=== PATIENT | female | born 1995 | race Caucasian/White ===

== ENCOUNTER 2020-06-16 06:32 | Outpatient (RCR) | payer OTHER, SELFPAY ==
[2020-06-16 06:51] LABS: COVID-19 Test Negative (Negative)
[2020-06-23 14:26] LABS: COVID-19 Test Negative (Negative)
[2020-06-30 06:56] LABS: COVID-19 Test Negative (Negative); IDNOW Serial# 55D5AD1C
[2020-07-22 08:54] LABS: SARS-COV-2 PCR UMBRL Not Detected
[2020-07-26 14:02] LABS: SARS-COV-2 PCR UMBRL NOT DETECTED
[2020-08-04 09:43] LABS: SARS-COV-2 PCR UMBRL Not Detected
[2020-08-11 12:39] LABS: SARS-COV-2 PCR UMBRL Not Detected
[2020-08-14 11:12] LABS: SARS-COV-2 PCR UMBRL Not Detected
[2020-08-24 09:53] LABS: SARS-COV-2 PCR UMBRL NEGATIVE
== END 2020-06-16 06:33 | disposition home or self-care (01) ==
LOC: HO.EMPCOV 06:32
PROVIDERS: Visit Provider Internal Medicine
DX: Z20.828 Contact with and (suspected) exposure to other viral communicable diseases (principal)
CPT/HCPCS: 36415; 87635; C9803; U0003

== ENCOUNTER 2020-08-17 08:48 | Outpatient (REF) | payer OTHER, SELFPAY ==
[2020-08-17 09:18] LABS: COVID-19 Test Negative (Negative)
== END 2020-08-17 08:49 | disposition home or self-care (01) ==
LOC: HO.EMPCOV 08:48
PROVIDERS: Visit Provider Internal Medicine
DX: Z20.828 Contact with and (suspected) exposure to other viral communicable diseases (principal)
CPT/HCPCS: 36415; 87635

== ENCOUNTER 2020-09-25 09:50 | Outpatient (REF) | payer OTHER, SELFPAY ==
[2020-09-26 08:31] LABS: HBsAGNum1 0.18 S/CO (0.00-0.99); HIV AB/AG Nonreactive (Nonreactive); HIV Num 1 0.08 S/CO (0.00-0.99); Hepatitis B Surface Antigen Negative (Negative); ~HepC Num1 0.07 S/CO (0.00-0.79); ~Hepatitis C Antibody Nonreactive (Nonreactive)
[2020-09-26 09:44] LABS: Syphilis Screen Nonreactive (Nonreactive)
[2020-09-26 14:56] LABS: C. trachomatis RNA TMA NOT DETECTED (NOT DETECTED); N. gonorrhoeae RNA TMA NOT DETECTED (NOT DETECTED)
== END 2020-09-25 09:51 | disposition home or self-care (01) ==
LOC: HO.LAB 09:50
PROVIDERS: PCP Internal Medicine; Visit Provider Advanced Practice Midwife
DX: Z11.59 Encounter for screening for other viral diseases (principal); Z11.4 Encounter for screening for human immunodeficiency virus [HIV]; Z11.3 Encounter for screening for infections with a predominantly sexual mode of transmission; Z11.8 Encounter for screening for other infectious and parasitic diseases; G43.909 Migraine, unspecified, not intractable, without status migrainosus
CPT/HCPCS: 36415; 86780; 86803; 87340; 87389; 87491; 87591

== ENCOUNTER 2021-05-06 14:03 | Outpatient (REF) | payer OTHER, SELFPAY ==
[2021-05-07 01:34] LABS: CT PCR NOT DETECTED (Not Detect.); NG PCR NOT DETECTED (Not Detect.)
[2021-05-07 09:06] LABS: BV Int Neg Control Negative (Negative); BV Int Pos Control Positive (Positive)
== END 2021-05-06 14:04 | disposition home or self-care (01) ==
LOC: HO.LAB 14:03
PROVIDERS: Visit Provider Advanced Practice Midwife
DX: Z01.411 Encounter for gynecological examination (general) (routine) with abnormal findings (principal); N92.1 Excessive and frequent menstruation with irregular cycle; Z20.2 Contact with and (suspected) exposure to infections with a predominantly sexual mode of transmission
CPT/HCPCS: 87480; 87491; 87510; 87591; 87660

== ENCOUNTER 2022-04-06 15:18 | Outpatient (REF) | payer OTHER, SELFPAY ==
--- NOTE | ~2022-04-06 | XR_ITS ---
EXAMINATION: XR CHEST CLINICAL INFORMATION: Cough. COMPARISON: Chest radiograph dated from 08/15/2019. TECHNIQUE: 2 views of the chest were obtained. FINDINGS: No significant abnormality is noted involving the heart, lungs, mediastinum, bony thorax or soft tissues. XR/XR chest 2V IMPRESSION: Unremarkable examination.
== END 2022-04-06 15:19 | disposition home or self-care (01) ==
LOC: HO.XRAY 15:18
PROVIDERS: Visit Provider Internal Medicine Pulmonary Disease
DX: R05.9 Cough, unspecified (principal)
CPT/HCPCS: 71046

== ENCOUNTER 2022-04-09 21:33 | Outpatient (REF) | payer OTHER, SELFPAY ==
[2022-04-09 22:18] LABS: COVID-19 Test Negative (Negative); IDNOW Serial# 55D5AD1C
[2022-04-13 09:11] LABS: Binax Internal Control QC Valid; Binax Now Covid-19 Ag Negative (Negative)
== END 2022-04-09 21:34 | disposition home or self-care (01) ==
LOC: HO.LAB 21:33
PROVIDERS: Internal Medicine; PCP Internal Medicine; Visit Provider Internal Medicine
DX: Z20.822 Contact with and (suspected) exposure to COVID-19 (principal)
CPT/HCPCS: 87635; 87811; C9803

== ENCOUNTER 2022-05-26 09:25 | Outpatient (REF) | payer OTHER, SELFPAY ==
[2022-05-26 11:34] LABS: MANUAL DIFF FLAG NO
[2022-05-26 11:56] LABS: Basophils Percent Auto 0.7 % (0-2); Eosinophils Absolute Auto 0.2 X10*3/uL (0.0-0.4); Eosinophils Percent Auto 3.8 % (0-4); Hematocrit 44.3 % (37.0-47.0); Hemoglobin 14.8 g/dl (12.0-16.0); Imm Gran Abs Auto 0.01 X10*3/uL (0.00-0.03); Imm Gran Pct Auto 0.2 % (0.0-0.4); Lymphocytes Percent Auto 33.9 % (20-40); Mean Corpuscular HGB Conc 33.4 g/dl (31.0-35.0); Mean Corpuscular Hemoglobin 30.3 pg (27.0-33.0); Mean Corpuscular Volume 90.8 fL (80.0-98.0); Mean Platelet Volume 11.3 fL (9.4-12.3); Monocytes Absolute Auto 0.5 X10*3/uL (0.1-1.2); Monocytes Percent Auto 8.2 % (2-11); Neutrophils Absolute Auto 3.1 x10*3/uL (2.0-8.3); Neutrophils Percent Auto 53.2 % (45-73); Platelet Count 218 X10*3/uL (160-400); Red Blood Count 4.88 X10*6/uL (4.20-5.50); Red Cell Distribution Width 12.6 % (11.0-16.0); White Blood Count 5.8 X10*3/uL (4.8-10.8)
[2022-05-26 12:48] LABS: Alanine Aminotransferase 20 U/L (0-31); Albumin Level 4.7 g/dL (3.5-5.0); Alkaline Phosphatase 64 U/L (39-117); Anion Gap 15 (12-20); Aspartate Amino Transferase 24 U/L (5-31); Bilirubin Total 0.9 mg/dL (0.0-1.0); Blood Urea Nitrogen 15 mg/dL (9-16); Carbon Dioxide 27 mmol/L (22-29); Chloride 103 mmol/L (96-108); Cholesterol 195 mg/dL; Estimated Glomerular Filt Rate > 60; Glucose Fasting 82 mg/dL (60-99); HDL Cholesterol 86 mg/dL; LDL Cholesterol Calculated 101 mg/dl; Sodium 141 mmol/L (135-145); Total Protein 7.4 g/dL (6.5-8.0); Triglycerides 41 mg/dL
== END 2022-05-26 09:26 | disposition home or self-care (01) ==
LOC: HO.WFDLDS 09:25
PROVIDERS: Visit Provider Nurse Practitioner Family
DX: Z00.00 Encounter for general adult medical examination without abnormal findings (principal)
CPT/HCPCS: 36415; 80053; 80061; 85025

== ENCOUNTER → 2022-07-13 09:22 | Outpatient (BNVA) | payer SELFPAY | PROVIDERS: PCP Nurse Practitioner Family | DX: R76.11 Nonspecific reaction to tuberculin skin test without active tuberculosis (principal) | CPT/HCPCS: 36415; 86481 ==

== ENCOUNTER 2022-09-28 12:53 | Outpatient (REF) | payer OTHER, SELFPAY ==
[2022-09-28 13:04] LABS: MANUAL DIFF FLAG NO
[2022-09-28 13:19] LABS: Basophils Absolute Auto 0.1 X10*3/uL (0.0-0.2); Basophils Percent Auto 0.5 % (0-2); Eosinophils Absolute Auto 0.6 X10*3/uL (0.0-0.4); Eosinophils Percent Auto 5.9 % (0-4); Hematocrit 43.7 % (37.0-47.0); Hemoglobin 14.6 g/dl (12.0-16.0); Imm Gran Abs Auto 0.04 X10*3/uL (0.00-0.03); Imm Gran Pct Auto 0.4 % (0.0-0.4); Lymphocytes Absolute Auto 2.2 X10*3/uL (1.2-4.9); Lymphocytes Percent Auto 20.7 % (20-40); Mean Corpuscular HGB Conc 33.4 g/dl (31.0-35.0); Mean Corpuscular Hemoglobin 30.2 pg (27.0-33.0); Mean Corpuscular Volume 90.5 fL (80.0-98.0); Mean Platelet Volume 10.9 fL (9.4-12.3); Monocytes Absolute Auto 0.8 X10*3/uL (0.1-1.2); Monocytes Percent Auto 7.2 % (2-11); Neutrophils Percent Auto 65.3 % (45-73); Platelet Count 208 X10*3/uL (160-400); Red Blood Count 4.83 X10*6/uL (4.20-5.50); Red Cell Distribution Width 12.6 % (11.0-16.0); White Blood Count 10.7 X10*3/uL (4.8-10.8)
== END 2022-09-28 12:54 | disposition home or self-care (01) ==
LOC: HO.LAB 12:53
PROVIDERS: PCP Nurse Practitioner Family; Visit Provider Internal Medicine Pulmonary Disease
DX: R05.9 Cough, unspecified (principal); Z91.09 Other allergy status, other than to drugs and biological substances
CPT/HCPCS: 36415; 82785; 85025; 86003

== ENCOUNTER → 2022-10-12 12:23 | Outpatient (BNVA) | payer OTHER, SELFPAY | PROVIDERS: PCP Nurse Practitioner Family; Visit Provider Internal Medicine Pulmonary Disease | DX: Z13.89 Encounter for screening for other disorder (principal) ==

== ENCOUNTER → 2022-11-09 09:57 | Outpatient (BNVA) | payer OTHER, SELFPAY | PROVIDERS: PCP Nurse Practitioner Family; Visit Provider Internal Medicine Pulmonary Disease | DX: Z13.89 Encounter for screening for other disorder (principal) ==

== ENCOUNTER 2022-11-29 12:29 | Outpatient (REF) | payer OTHER, SELFPAY | END 2022-11-29 12:30 | disposition home or self-care (01) | LOC: HO.MDS 12:29 | PROVIDERS: Visit Provider Internal Medicine Pulmonary Disease | DX: J45.50 Severe persistent asthma, uncomplicated (principal) | CPT/HCPCS: 96372; J2357 ==

== ENCOUNTER 2022-12-13 07:30 | Outpatient (REF) | payer OTHER, SELFPAY | END 2022-12-13 07:31 | disposition home or self-care (01) | LOC: HO.MDS 07:30 | PROVIDERS: Visit Provider Internal Medicine Pulmonary Disease | DX: J45.50 Severe persistent asthma, uncomplicated (principal) | CPT/HCPCS: 96372 ==

== ENCOUNTER 2022-12-27 08:36 | Outpatient (REF) | payer OTHER, SELFPAY | END 2022-12-27 08:37 | disposition home or self-care (01) | LOC: HO.MDS 08:36 | PROVIDERS: Visit Provider Internal Medicine Pulmonary Disease | DX: J45.50 Severe persistent asthma, uncomplicated (principal) | CPT/HCPCS: 96372 ==

== ENCOUNTER 2023-09-09 13:19 | Outpatient (AMB) | payer BC, SELFPAY ==
[2023-09-09 13:20] VITALS: BP 112/62; PULSE 93; O2SAT 100; BMI 24.4
--- NOTE | 2023-09-09 13:20 | MHC.OFFVIS ---
Intake Vital Signs 09/09/23 13:20 Height 5 ft 9 in Weight 165 lb 5.547 oz BMI 24.4 BP 112/62 Blood Pressure Location Rt brachial Position Sitting Pulse 93 Pulse Source Doppler Pulse Oximetry (%) 100 Oxygen Delivery Method Room Air Intake Visit Reasons: asthma wants to restart Xolair Allergies No Known Allergies Allergy (Verified 09/09/23 13:22) HPI asthma wants to restart Xolair HPI Details 27-year-old nonsmoker followed for asthma and environmental allergies. Patient has been using Breo and albuterol MDI with suboptimal control of his symptoms. She has been started on Xolair with significant improvement and essentially resolution of her asthma and environmental allergy symptoms. Unfortunately her insurance has changed and she has not had Xolair for last 3-4 months with significant deterioration her symptoms of Xolair. She does continue to use Breo and albuterol MDI. She denies acute exacerbations. 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[place] Sexual orientation: Straight/Heterosexual Gender identity: Female Female Reproductive History Menstrual Age of Menarche: 12 Review of Systems Const Denies daytime sleepiness, Denies excessive sweating, Denies fatigue, Denies fever(s), Denies lethargy, Denies malaise, Denies night sweats, Denies snoring and Denies weight loss Eyes Denies blurry vision and Denies itchy eyes ENT Denies nasal congestion, Denies post nasal drip, Denies sinus pain, Denies sinus pressure and Denies other ( Thrush) Card Denies chest pain, Denies pedal edema, Denies dyspnea, Denies orthopnea and Denies paroxysmal nocturnal dyspnea Resp Denies cough, Denies hemoptysis, Denies excessive phlegm production, Denies dyspnea, Denies snoring and Reports wheezing GI Denies abdominal pain and Denies heartburn Musc Denies myalgias, Denies arthralgias and Denies joint swelling Skin/Breast Denies rash Neuro Denies memory loss and Denies seizure-like activity Psych Denies abnormal sleep pattern, Denies anxiety and Denies memory loss Endo Denies excessive sweating, Denies fatigue and Denies heat intolerance Krunal/Lymph Denies easy bruising Aller/Immun Denies itchy eyes, Denies seasonal rhinorrhea and Reports wheezing Physical Exam Vital Signs: Last Vital Signs Pulse 93 09/09/23 13:20 BP 112/62 09/09/23 13:20 Pulse Ox 100 09/09/23 13:20 Oxygen Delivery Method Room Air 09/09/23 13:20 BMI result Body Mass Index 24.4 Const General: no acute distress and alert Nutritional Appearance: not obese Orientation/consciousness: Other orientation findings ( oriented) HEENT Head: Yes atraumatic Eyes General: appearance normal, both eyes and all related structures Sclerae: sclerae normal EOM: EOMs intact bilaterally Neck Neck: Yes supple Lymphatic: no lymphadenopathy noted Resp Effort & Inspection: normal respiratory effort and no use of accessory muscles Auscultation: clear to auscultation bilaterally Cardio Rate: regular rate Rhythm: regular rhythm Heart sounds: no gallops, no murmurs and no rubs Skin General skin exam: other ( warm) Extrem General: No clubbing, No cyanosis and No edema Assessment & Plan Assessment & Plan (1) Asthma: Code(s): J45.909 - Unspecified asthma, uncomplicated Plan: Previously excellent control on Xolair, recently off Xolair secondary to insurance reasons with suboptimal control of his symptoms. Continue Breo and albuterol MDI. Will request Xolair re-approval (2) Environmental allergies: Code(s): Z91.09 - Other allergy status, other than to drugs and biological substances Plan: Expect to improve on Xolair. Coding Level of Care Code Est Pt Level 4 (37840) Diagnoses Asthma J45.909 Environmental allergies Z91.09
== END 2023-09-09 13:35 | disposition home or self-care (01) ==
PROVIDERS: PCP Nurse Practitioner Family; Visit Provider Internal Medicine Pulmonary Disease
DX: J45.909 Unspecified asthma, uncomplicated (principal); Z91.09 Other allergy status, other than to drugs and biological substances
CPT/HCPCS: 99214

== ENCOUNTER → 2023-09-09 13:19 | Outpatient (BNVA) | payer BC, SELFPAY | PROVIDERS: PCP Nurse Practitioner Family; Visit Provider Internal Medicine Pulmonary Disease ==

== ENCOUNTER 2024-02-27 10:48 | Outpatient (AMB) | payer BC, SELFPAY ==
--- NOTE | 2024-02-27 10:50 | MHC.OFFVIS ---
Vital Signs 02/27/24 10:51 Height 5 ft 9 in Weight 158 lb BMI 23.3 BP 118/64 Blood Pressure Location Lt brachial Position Sitting Pulse 92 Pulse Source Doppler Pulse Oximetry (%) 99 Oxygen Delivery Method Room Air Intake Visit Reasons: Asthma Allergies No Known Allergies Allergy (Verified 09/09/23 13:22) HPI HPI Asthma: Details: 28-year-old nonsmoker followed for asthma and environmental allergies. Patient has been using Xolair, Breo, and albuterol MDI with excellent control of her underlying symptoms. She denies any recent exacerbations. 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 Gender identity: Female Female Reproductive History Menstrual Age of Menarche: 12 Review of Systems Const Denies daytime sleepiness, Denies excessive sweating, Denies fatigue, Denies fever(s), Denies lethargy, Denies malaise, Denies night sweats, Denies snoring and Denies weight loss Eyes Denies blurry vision and Denies itchy eyes ENT Denies nasal congestion, Denies post nasal drip, Denies sinus pain, Denies sinus pressure and Denies other ( Thrush) Card Denies chest pain, Denies pedal edema, Denies dyspnea, Denies orthopnea and Denies paroxysmal nocturnal dyspnea Resp Denies cough, Denies hemoptysis, Denies excessive phlegm production, Denies dyspnea, Denies snoring and Denies wheezing GI Denies abdominal pain and Denies heartburn Musc Denies myalgias, Denies arthralgias and Denies joint swelling Skin/Breast Denies rash Neuro Denies memory loss and Denies seizure-like activity Psych Denies abnormal sleep pattern, Denies anxiety and Denies memory loss Endo Denies excessive sweating, Denies fatigue and Denies heat intolerance Krunal/Lymph Denies easy bruising Aller/Immun Denies itchy eyes, Denies seasonal rhinorrhea and Denies wheezing Physical Exam Vital Signs: Last Vital Signs Pulse 92 02/27/24 10:51 BP 118/64 02/27/24 10:51 Pulse Ox 99 02/27/24 10:51 Oxygen Delivery Method Room Air 02/27/24 10:51 BMI result Body Mass Index 23.3 Const General: no acute distress and alert Nutritional Appearance: not obese Orientation/consciousness: Other orientation findings ( oriented) HEENT Head: Yes atraumatic Eyes General: appearance normal, both eyes and all related structures Sclerae: sclerae normal EOM: EOMs intact bilaterally Neck Neck: Yes supple Lymphatic: no lymphadenopathy noted Resp Effort & Inspection: normal respiratory effort and no use of accessory muscles Auscultation: clear to auscultation bilaterally Cardio Rate: regular rate Rhythm: regular rhythm Heart sounds: no gallops, no murmurs and no rubs Skin General skin exam: other ( warm) Extrem General: No clubbing, No cyanosis and No edema Assessment & Plan Assessment & Plan (1) Asthma: Code(s): J45.909 - Unspecified asthma, uncomplicated Category: Medical Plan: Well controlled on current regimen of Breo, Xolair, and albuterol MDI. Continue current regimen. (2) Environmental allergies: Code(s): Z91.09 - Other allergy status, other than to drugs and biological substances Category: Medical Plan: Well controlled on Xolair. Continue current regimen. Coding Level of Care Code Est Pt Level 4 (14261) Diagnoses Asthma J45.909 Environmental allergies Z91.09
[2024-02-27 10:51] VITALS: BP 118/64; PULSE 92; O2SAT 99; BMI 23.3
== END 2024-02-27 11:03 | disposition home or self-care (01) ==
PROVIDERS: PCP Nurse Practitioner Family; Visit Provider Internal Medicine Pulmonary Disease
DX: J45.909 Unspecified asthma, uncomplicated (principal); Z91.09 Other allergy status, other than to drugs and biological substances
CPT/HCPCS: 99214

== ENCOUNTER → 2024-02-27 10:48 | Outpatient (BNVA) | payer BC, SELFPAY | PROVIDERS: PCP Nurse Practitioner Family; Visit Provider Internal Medicine Pulmonary Disease ==